=== PATIENT | male | born 1990 | race American Indian/Alaskan Native ===

== ENCOUNTER 2017-05-14 00:11 | Emergency (ER) | payer SELFPAY ==
[2017-05-14 00:11] VITALS: BMI 25.0
[2017-05-14 00:26] VITALS: BP 121/53; RESP 17; TEMP 98.8; O2SAT 96
--- NOTE | 2017-05-14 01:20 | ED PDOC ---
HPI: Psych/Substance Abuse Time Seen by Provider: 05/14/17 00:30 Chief Complaint (Nursing): Substance Abuse Chief Complaint (Provider): Substance abuse History Per: Patient History/Exam Limitations: no limitations Onset/Duration Of Symptoms: Mins Current Symptoms Are (Timing): Still Present Suicide/Self Injury Attempted (Context): None Modifying Factor(s): Alcohol, Other Additional History Per: EMS Additional Complaint(s): The pt is a 26yo male, Hx of PCP and alcohol abuse, brought to the ED by EMS for evaluation. Pt admits to smoking an unknown substance today. Pt has no medical complaints. Of note, pt was combative on his way to the ED and had to be placed in restraints. Past Medical History Reviewed: Historical Data, Nursing Documentation, Vital Signs Vital Signs: Last Vital Signs Temp 98.8 F 05/14/17 00:22 Pulse 116 H 05/14/17 00:22 Resp 17 05/14/17 00:22 BP 121/53 L 05/14/17 00:22 Pulse Ox 96 05/14/17 00:22 - Medical History PMH: No Chronic Diseases - Surgical History Surgical History: No Surg Hx - Family History Family History: States: Unknown Family Hx - Social History Drugs: Other - Immunization History Hx Tetanus Toxoid Vaccination: No Hx Influenza Vaccination: No Hx Pneumococcal Vaccination: No - Home Medications Home Medications: Ambulatory Orders Medication Instructions Recorded No Known Home Med 03/21/16 - Allergies Allergies/Adverse Reactions: Allergies Allergy/AdvReac Type Severity Reaction Status Date / Time No Known Allergies Allergy Verified 05/14/17 00:22 Review of Systems ROS Statement: Except As Marked, All Systems Reviewed And Found Negative Psych: Positive for: Other (substance abuse) Physical Exam - Reviewed Nursing Documentation Reviewed: Yes Vital Signs Reviewed: Yes - Physical Exam Appears: Positive for: Well, Non-toxic, No Acute Distress Head Exam: Positive for: ATRAUMATIC, NORMAL INSPECTION, NORMOCEPHALIC Skin: Positive for: Normal Color, Warm, DRY Eye Exam: Positive for: Normal appearance Neck: Positive for: Normal Cardiovascular/Chest: Positive for: Regular Rate, Rhythm, Tachycardia Respiratory: Positive for: Normal Breath Sounds. Negative for: Respiratory Distress Gastrointestinal/Abdominal: Positive for: Normal Exam, Soft. Negative for: Tenderness Extremity: Positive for: Normal ROM, Other (mutliple exchoriations and abrasion on b/l arms and legs). Negative for: Deformity, Swelling Neurologic/Psych: Positive for: Alert, Oriented - Laboratory Results Result Diagrams: 05/14/17 01:15 05/14/17 01:15 - ECG ECG: Positive for: Interpreted By Me, Viewed By Me ECG Rhythm: Positive for: Normal QRS, Sinus Tachycardia. Negative for: ST/T Changes Rate: 124 O2 Sat by Pulse Oximetry: 96 (RA) Pulse Ox Interpretation: Normal - Progress Re-evaluation Time: 04:01 Condition: Re-examined, Improved Medical Decision Making Medical Decision Making: Time: 0048 Impression: Substance abuse, PCP and alcohol abuse Plan: -- Pt had to be placed on restraints due to combative behaviour. -- Ativan given due to substance abuse induced delirium -- Bloodwork -- Reassess Scribe Attestation: Documented by Denise Weaver acting as a scribe for Luciano Coto MD. Provider Attestation: All medical record entries made by the Scribe were at my direction and personally dictated by me. I have reviewed the chart and agree that the record accurately reflects my personal performance of the history, physical exam, medical decision making, and the department course for this patient. I have also personally directed, reviewed, and agree with the discharge instructions and disposition. Disposition - Clinical Impression Clinical Impression: PCP (phencyclidine) abuse - Patient ED Disposition Is Patient to be Admitted: No Doctor Will See Patient In The: Office Counseled Patient/Family Regarding: Studies Performed, Diagnosis, Need For Followup - Disposition Referrals: [facility] [Outside] Disposition: Routine/Home Disposition Time: 04:01 Condition: GOOD Additional Instructions: Follow up with your PCP in 2-3 days. Instructions: Polysubstance Abuse (ED)
[2017-05-14 01:27] LABS: BASO # 0.1 K/uL (0.0-0.2); BASO % 0.4 % (0.0-2.0); EOS # 0.1 K/uL (0.0-0.7); EOS % 0.5 % (0.0-4.0); HEMATOCRIT 41.1 % (35.0-51.0); LYMPH # 2.6 K/uL (1.0-4.3); LYMPH % 18.9 % (20.0-40.0); MEAN CELL VOLUME 92.5 fl (80.0-94.0); MEAN CORPUSCULAR HEMOGLOBIN 30.2 pg (27.0-31.0); MEAN CORPUSCULAR HGB CONC 32.7 g/dL (33.0-37.0); MEAN PLATELET VOLUME 6.9 fl (7.2-11.7); MONO # 0.9 K/uL (0.0-0.8); MONO % 6.3 % (0.0-10.0); NEUT # 10.1 K/uL (1.8-7.0); NEUT % 73.9 % (50.0-75.0); RED CELL DISTRIBUTION WIDTH 13.8 % (11.5-14.5); WHITE BLOOD COUNT 13.7 K/uL (4.8-10.8)
[2017-05-14] MEDS ORDERED: Sodium Chloride 0.9% 1,000 ML IV STA (01:28)
[2017-05-14 01:36] LABS: ALB/GLOB RATIO 1.6 (1.0-2.1); ALCOHOL SERUM < 10 mg/dl (0-10); ALKALINE PHOSPHATASE 60 U/L (38-126); ALT/SGPT 145 U/L (21-72); AST/SGOT 78 U/L (17-59); BILIRUBIN,TOTAL 0.4 mg/dl (0.2-1.3); BLOOD UREA NITROGEN 8 mg/dl (9-20); CALCIUM 9.9 mg/dL (8.4-10.2); CARBON DIOXIDE 19 mmol/L (22-30); CHLORIDE 100 mmol/L (98-107); GFR AFRICAN-AMERICAN > 60; GLUCOSE,RANDOM 85 mg/dL (75-110); POTASSIUM 3.8 MMOL/L (3.6-5.0); SODIUM 137 mmol/l (132-148); TOTAL PROTEIN 7.6 G/DL (6.3-8.2)
[2017-05-14 04:10] VITALS: PULSE 124
--- NOTE | 2017-05-14 18:07 | CARD ---
APPROVED REPORT EKG Measurement Heart [id number] <Conclusion> Sinus tachycardia Right atrial enlargement Cannot rule out Inferior infarct, age undetermined Abnormal ECG
== END 2017-05-14 04:09 | disposition home or self-care (01) ==
LOC: H.ER 00:11
DX: F16.10 Hallucinogen abuse, uncomplicated (principal)
CPT/HCPCS: 80053; 85025; 93005; 96372; 99282; G0480; J2060

== ENCOUNTER 2017-08-13 21:43 | Emergency (ER) | payer SELFPAY ==
[2017-08-13 21:43] VITALS: BMI 25.0
[2017-08-13 21:47] VITALS: BP 159/88; PULSE 98; RESP 16; TEMP 98.7; O2SAT 97
--- NOTE | 2017-08-13 22:24 | ED PDOC ---
HPI: Psych/Substance Abuse Time Seen by Provider: 08/13/17 21:57 Chief Complaint (Nursing): Substance Abuse Chief Complaint (Provider): PCP intoxication Additional Complaint(s): Pt brought in for bizarre behavior. Admits to PCP and marijuana abuse. Denies suicidal or homicidal ideations. Denies hallucinations. Denies alcohol abuse or any use of other illicit substances other than those above. PMD: None Past Medical History Reviewed: Historical Data, Nursing Documentation, Vital Signs Vital Signs: Last Vital Signs Temp 98.7 F 08/13/17 21:44 Pulse 98 H 08/13/17 21:44 Resp 16 08/13/17 21:44 BP 159/88 H 08/13/17 21:44 Pulse Ox 97 08/13/17 21:44 - Medical History PMH: No Chronic Diseases - Surgical History Surgical History: No Surg Hx - Family History Family History: States: Unknown Family Hx - Social History Drugs: Cannabis, Other (PCP) - Immunization History Hx Tetanus Toxoid Vaccination: No Hx Influenza Vaccination: No Hx Pneumococcal Vaccination: No - Home Medications Home Medications: Ambulatory Orders Medication Instructions Recorded No Known Home Med 03/21/16 - Allergies Allergies/Adverse Reactions: Allergies Allergy/AdvReac Type Severity Reaction Status Date / Time No Known Allergies Allergy Verified 05/14/17 00:22 Review of Systems ROS Statement: Except As Marked, All Systems Reviewed And Found Negative (and as per HPI) Psych: Negative for: Anxiety, Depression, Suicidal ideation, Withdrawal Physical Exam - Reviewed Nursing Documentation Reviewed: Yes Vital Signs Reviewed: Yes - Physical Exam Appears: Positive for: No Acute Distress Head Exam: Positive for: ATRAUMATIC, NORMOCEPHALIC Skin: Positive for: Warm, Dry Eye Exam: Positive for: EOMI, PERRL ENT: Positive for: Normal ENT Inspection Neck: Positive for: Painless ROM, Supple Cardiovascular/Chest: Positive for: Regular Rate, Rhythm, Chest Non Tender. Negative for: Murmur Respiratory: Negative for: Accessory Muscle Use, Respiratory Distress Gastrointestinal/Abdominal: Negative for: Distended Back: Negative for: Decreased ROM Extremity: Positive for: Normal ROM. Negative for: Deformity Neurologic/Psych: Positive for: Alert, Mood/Affect (anxious affect), Gait ( steady). Negative for: Motor/Sensory Deficits - ECG O2 Sat by Pulse Oximetry: 97 - Progress ED Course And Treament: Family in ER to bring patient home. Agrees to watch patient for the evening. Educated patient on dangers of drug abuse and resources given. Disposition - Clinical Impression Clinical Impression: PCP (phencyclidine) abuse - Disposition Disposition: Routine/Home Disposition Time: 22:00 Condition: IMPROVED Instructions: Polysubstance Abuse (ED) Forms: [employer] (K[place]akh)
== END 2017-08-13 22:15 | disposition home or self-care (01) ==
LOC: H.ER 21:43
DX: F16.10 Hallucinogen abuse, uncomplicated (principal); F12.10 Cannabis abuse, uncomplicated

== ENCOUNTER 2017-11-11 21:49 | Emergency (ER) | payer SELFPAY ==
[2017-11-11 21:49] VITALS: BMI 25.0
[2017-11-11 21:54] VITALS: BP 151/71; PULSE 88; RESP 16; TEMP 97.2; O2SAT 99
--- NOTE | 2017-11-11 22:01 | ED PDOC ---
HPI: Psych/Substance Abuse Time Seen by Provider: 11/11/17 21:57 Chief Complaint (Nursing): Substance Abuse Chief Complaint (Provider): substance abuse History Per: Patient, EMS Additional History Per: Patient, EMS Additional Complaint(s): 27 y/o male brought in by EMS for suspected substance abuse. Patient admits to using PCP tonight. Previous ED visits for similar. Patient denies acute medical or psychiatric complaints. Past Medical History Reviewed: Historical Data, Nursing Documentation, Vital Signs Vital Signs: Last Vital Signs Temp 97.2 F L 11/11/17 21:50 Pulse 88 11/11/17 21:50 Resp 16 11/11/17 21:50 BP 151/71 H 11/11/17 21:50 Pulse Ox 99 11/11/17 21:50 - Medical History PMH: No Chronic Diseases - Surgical History Surgical History: No Surg Hx - Family History Family History: States: Unknown Family Hx - Social History Current smoker - smoking cessation education provided: No Alcohol: None Drugs: Methamphetamine - Immunization History Hx Tetanus Toxoid Vaccination: No Hx Influenza Vaccination: No Hx Pneumococcal Vaccination: No - Home Medications Home Medications: Ambulatory Orders Medication Instructions Recorded No Known Home Med 03/21/16 - Allergies Allergies/Adverse Reactions: Allergies Allergy/AdvReac Type Severity Reaction Status Date / Time No Known Allergies Allergy Verified 05/14/17 00:22 Review of Systems ROS Statement: Except As Marked, All Systems Reviewed And Found Negative Physical Exam - Reviewed Nursing Documentation Reviewed: Yes Vital Signs Reviewed: Yes - Physical Exam Appears: Positive for: Well, Non-toxic, No Acute Distress Head Exam: Positive for: ATRAUMATIC, NORMAL INSPECTION, NORMOCEPHALIC Skin: Positive for: Normal Color Eye Exam: Positive for: Normal appearance ENT: Positive for: Normal ENT Inspection Cardiovascular/Chest: Positive for: Regular Rate, Rhythm Respiratory: Positive for: Normal Breath Sounds Gastrointestinal/Abdominal: Positive for: Normal Exam Back: Positive for: Normal Inspection Extremity: Positive for: Normal ROM Neurologic/Psych: Positive for: Alert, Oriented - ECG O2 Sat by Pulse Oximetry: 99 - Progress ED Course And Treament: Patient awake, alert, oriented x3. Ambulating steady gait. Stable for discharge. Disposition - Clinical Impression Clinical Impression: PCP (phencyclidine) abuse - Patient ED Disposition Is Patient to be Admitted: No Counseled Patient/Family Regarding: Diagnosis, Need For Followup - Disposition Disposition: Routine/Home Disposition Time: 23:03 Condition: IMPROVED Instructions: Polysubstance Abuse (ED)
== END 2017-11-11 23:08 | disposition home or self-care (01) ==
LOC: H.ER 21:49
DX: F16.10 Hallucinogen abuse, uncomplicated (principal)